=== PATIENT | female | born 1975 | race African-American/Black ===

== ENCOUNTER 2024-03-21 18:38 | Emergency (ER) | payer OTHER, SELFPAY ==
--- NOTE | ~2024-03-21 | XR_ITS ---
XR chest 2V Ordering provider: Aurelio Tidwell MD History: 49 years Female with . chest pain, LEFT SIDE FOR 3 DAYS . Comparison: None. FINDINGS: MEDIASTINUM: The cardiac silhouette is not enlarged. LUNGS: No effusions or pneumothorax. Opacification in the left upper lobe is noted suggestive of pneu monia. OTHER: No free air under the diaphragm. IMPRESSION: Left upper lobe pneumonia. Follow-up to resolution is advised. Reviewed, dictated and finalized at location A.
[2024-03-21 18:44] VITALS: BP 156/97; PULSE 84; RESP 20; TEMP 36.4; O2SAT 100
--- NOTE | 2024-03-21 18:48 | ECG_ITS ---
Test Date: 2024-03-21 18:53:45 Measurements Intervals Cadet Rate: 80 P: 76 IL: 158 QRS: -1 QRSD: 106 T: 56 QT: 355 QTc: 410 Interpretive Statements SINUS RHYTHM POSSIBLE RIGHT VENTRICULAR CONDUCTION DELAY [RSR (QR) IN V1/V2] WITHIN NORMAL LIMITS No previous ECG available for comparison Electronically Signed On 03-23-2024 13:20:30 CDT by Que Don M.D.
[2024-03-21 19:23] LABS: Alanine Aminotransferase 36 U/L (6-35); Albumin Level 3.5 g/dL (3.5-5.1); Alkaline Phosphatase 114 U/L (38-126); Anion Gap 11 mmol/L (4-12); Aspartate Amino Transferase 37 U/L (14-36); Bilirubin,Total 0.6 mg/dL (0.2-1.3); Blood Urea Nitrogen 10 mg/dL (7-17); Calcium 8.5 mg/dL (8.4-10.2); Carbon Dioxide 27 mmol/L (22-30); Chloride 101 mmol/L (98-107); Estimated CRCL calculation 102 ml/min; Estimated Glomerular Filt Rate > 60; Glucose 119 mg/dL (65-110); Lipase 89 U/L (23-300); Potassium 3.5 mmol/L (3.4-5.0); Sodium 139 mmol/L (137-145)
[2024-03-21 19:35] LABS: Troponin I < 0.012 ng/mL (0.000-0.034)
--- NOTE | 2024-03-21 22:58 | ED.GENADULT ---
HPI - General Adult General Chief complaint: Chest Pain Stated complaint: wants xray for pneumonia Time Seen by Provider: 03/21/24 22:17 History of Present Illness HPI narrative: Patient is a 49-year-old female who presents emergency department with chief complaint of I think I have pneumonia. The patient reports that since she has been feeling weak has had body aches some shortness of breath and a cough. Patient reports this feels similar to when she had pneumonia in the past. Related Data Allergies Allergy/AdvReac Type Severity Reaction Status Date / Time No Known Allergies Allergy Verified 03/21/24 18:39 Review of Systems Review of Systems: A 10 system review of systems was completed on the patient and is negative except for what is stated in the HPI. Nursing and ancillary documentation was reviewed. Exam Narrative: GENERAL: Well-appearing, well-nourished, and in no acute distress. HEAD: Normocephalic, atraumatic. EYES: PERRLA and EOMI. ENT: Nares clear, no rhinorrhea or epistaxis. Mucous membranes moist. NECK: Supple. CHEST: Clear to auscultation. No respiratory distress. HEART: Regular rate and rhythm. No murmur heard. Normal peripheral pulses. ABDOMEN: Soft, nontender, nondistended, normal active bowel sounds. EXTREMITIES: Normal range of motion. No edema. SKIN: Warm, dry, no rash. NEURO: No focal deficits. Alert and oriented x3. PSYCH: Normal mood and affect. Course Vital Signs Vital signs: Vital Signs Temperature 36.4 C 03/21/24 18:44 Pulse Rate 84 03/21/24 18:44 Respiratory Rate 20 03/21/24 18:44 Blood Pressure 156/97 H 03/21/24 18:44 Pulse Oximetry 100 03/21/24 18:44 Oxygen Delivery Room Air 03/21/24 18:44 Temperature 36.7 C 03/21/24 23:50 Pulse Rate 98 03/21/24 23:50 Respiratory Rate 14 03/21/24 23:50 Blood Pressure 163/97 H 03/21/24 23:50 Pulse Oximetry 100 03/21/24 23:50 Oxygen Delivery Room Air 03/21/24 23:09 Medical Decision Making [facility] Narrative Medical decision making narrative: Differential diagnosis includes pneumonia, viral illness, upper respiratory infection Laboratory studies were obtained on the patient showed normal CBC normal CMP the liver enzymes were slightly elevated with an AST of 37 and ALT of 36 bilirubin normal troponin was negative lipase is normal Chest x-ray showed left upper lobe pneumonia Vital Signs Vital Signs: Vital Signs Temperature 36.4 C 03/21/24 18:44 Pulse Rate 84 03/21/24 18:44 Respiratory Rate 20 03/21/24 18:44 Blood Pressure 156/97 H 03/21/24 18:44 Pulse Oximetry 100 03/21/24 18:44 Oxygen Delivery Room Air 03/21/24 18:44 Temperature 36.7 C 03/21/24 23:50 Pulse Rate 98 03/21/24 23:50 Respiratory Rate 14 03/21/24 23:50 Blood Pressure 163/97 H 03/21/24 23:50 Pulse Oximetry 100 03/21/24 23:50 Oxygen Delivery Room Air 03/21/24 23:09 Lab Data 03/21/24 23:46 03/21/24 19:05 Labs: Lab Results 03/21/24 03/21/24 Range/Units 19:05 23:46 WBC 10.0 (4.5-10.0) K/mm3 RBC 3.40 L (4.2-5.4) M/mm3 Hgb 9.7 L (12.0-15.0) g/dL Hct 29.8 L (37.0-47.0) % MCV 87.6 (80-100) fl MCH 28.5 (26-34) pg MCHC 32.6 (32-36) g/dl RDW 14.6 H (11.5-14.5) % Plt Count 363 (150-375) k/mm3 MPV 9.9 (7.4-10.4) fl Immature Gran % (Auto) 2.0 H (0-0.5) % Neut % (Auto) 54.6 (45.5-73.1) % Lymph % (Auto) 30.0 (18.3-44.2) % Summit % (Auto) 9.7 H (2.6-8.5) % Eos % (Auto) 3.0 (0-4.4) % Baso % (Auto) 0.7 (0.2-1.2) % Lymph # (Auto) 2.99 (0.9-3.2) K/mm3 Summit # (Auto) 1.0 H (0.1-0.6) K/mm3 Eos # (Auto) 0.3 (0-0.3) K/mm3 Baso # (Auto) 0.1 (0.0-0.1) K/mm3 Abs Immat Gran (auto) 0.20 H (0.00-0.031) K/mm3 Absolute Neuts (auto) 5.4 (1.3-6.7) K/mm3 Absolute Nucleated RBC 0.000 (0.0-0.012) K/mm3 Nucleated RBC % 0.0 (0.0-0.2) % PT Pending INR Pending APTT
[2024-03-21] MEDS: AZITHROMYCIN 250 MG TABLET 500 MG PO (23:16)
[2024-03-21] MEDS: CEFDINIR 300 MG CAPSULE PO (23:16)
[2024-03-21 23:50] VITALS: BP 163/97; PULSE 98; RESP 14; TEMP 36.7; O2SAT 100
[2024-03-22 00:09] LABS: Basophils Absolute Auto 0.1 K/mm3 (0.0-0.1); Basophils Percent Auto 0.7 % (0.2-1.2); Eosinophils Absolute Auto 0.3 K/mm3 (0-0.3); Hematocrit 29.8 % (37.0-47.0); Hemoglobin 9.7 g/dL (12.0-15.0); Lymphocytes Absolute Auto 2.99 K/mm3 (0.9-3.2); Mean Corpuscular HGB Conc 32.6 g/dl (32-36); Mean Corpuscular Hemoglobin 28.5 pg (26-34); Mean Corpuscular Volume 87.6 fl (80-100); Mean Platelet Volume 9.9 fl (7.4-10.4); Monocytes Percent Auto 9.7 % (2.6-8.5); Neutrophils Absolute Auto 5.4 K/mm3 (1.3-6.7); Neutrophils Percent Auto 54.6 % (45.5-73.1); Platelet Count Result 363 k/mm3 (150-375); Red Cell Distribution Width 14.6 % (11.5-14.5)
[2024-03-22 00:16] LABS: Troponin I < 0.012 ng/mL (0.000-0.034)
[2024-03-22 00:25] LABS: Prothrombin Time 13.5 Seconds (11.1-14.7)
[2024-03-22 00:26] LABS: Partial Thromboplastin Time 40.5 Seconds (22.3-36.8)
== END 2024-03-22 00:33 | disposition home or self-care (01) ==
PROVIDERS: Emergency Medicine; Emergency Provider Emergency Medicine
DX: J18.9 Pneumonia, unspecified organism (principal)
CPT/HCPCS: 36415; 71046; 80053; 83690; 84484; 85025; 85610; 85730; 93005; 99284; A9270

== ENCOUNTER 2025-07-25 16:56 | Emergency (ER) | payer OTHER, SELFPAY ==
[2025-07-25 17:20] VITALS: BP 165/98; PULSE 81; RESP 18; TEMP 36.5; O2SAT 100
[2025-07-25 20:41] VITALS: O2SAT 100
[2025-07-25 21:24] LABS: Strep Group A RT-PCR NOT DETECTED (Negative)
[2025-07-25 21:59] LABS: Influenza A QL RT-PCR Negative (Negative); Influenza B QL RT-PCR Negative (Negative); RSV RNA, RT-PCR Negative (Negative); SARS-CoV-2 RNA PCR Negative (Negative)
--- OUTSIDE RECORDS SUMMARY | 2025-07-25 22:07 | XMS_ITS | Clinical Summary ---
Author Organization [facility] [place] [address] Address [address] [place] [id number] Care Team Providers Care Process Coordinator Name Role Phone Lilibeth Richardson NP Primary Care Provider [phone] Allergies No known active allergies Medications ibuprofen (ADVIL,MOTRIN) 600 mg tablet Take 1 tablet (600 mg total) by mouth every 6 (six) hours as needed for pain (or headache) 30 tablet 2 02/07/[address] (VOLTAREN) 75 mg EC tablet Take 1 tablet (75 mg total) by mouth 2 (two) times a day as needed (pain) 60 tablet 05/28/2024 Active Active Problems Problem Noted Date Diagnosed Date Acute pain of right knee 02/07/2024 Assessment & Plan (02/07/2024 11:30 AM CDT): Will add diclofenac 75 mg b.i.d. for acute knee pain. She already has a appointment with sports medicine. She has already had an x-ray from [facility]. Showed small effusion. Follow-up with sports Medicine and they recommendations. Annual physical exam 02/07/2024 Assessment & Plan (02/07/2024 11:31 AM CDT): -Recommended: Healthy diet. Avoiding junk food/fast food. -30 minutes of exercise most days of the week. Increase to 45 minutes for weight loss. Health Maintenance reviewed - labs ordered today. -Influenza vaccine every year Recommend: - Topic Date Due DTaP/Tdap/Td Vaccine (1 - Tdap) Never done -F/u in 1 year for Annual PE or sooner if needed Patient declined to have labs drawn today. States she will come back another day and get drawn Chronic migraine without aur a without status migrainosus, not intractable 02/07/2024 Assessment & Plan (02/07/2024 11:18 AM CDT): Gets headache about twice/month. Usually uses prescription strength ibuprofen for headache. Asking for refill. She is aware not to use while she is on diclofenac. Immunizations Immunization Administration Dates Next Due Influenza, Unspecified 08/15/2023(Deferr ed: Patient Refused),08/15/2022(Deferred: Patient Refused) Pfizer SARS-CoV-2 Monovalent Vaccination (12+ Yrs) PURPLE 05/29/2021,05/01/2021 Family History Medical History Relation Name Comments Hypertension Father Solid Tumor Father Liver cancer Mother Relation Name Status Comments Father Mother Social History Tobacco Use Types Packs/Day Years Used Date Smoking Tobacco: Never Assessed PHQ-2 Answer Date Recorded PHQ-2 Total Score (If total score is 3 or more points, staff should administer the PHQ-9) 0 02/07/2024 Comments Unknown Sex and Gender Information Value Date Recorded Sex Assigned at Not on file Legal Sex Female 2:01 PM CDT Gender Identity Not on file Sexual Orientation Not on file Last Filed Vital Signs Vital Sign Reading Time Taken Comments Blood Pressure 128/82 02/07/2024 10:27 AM CDT Pulse 74 02/07/2024 10:27 AM CDT Temperature 36.4 C (97.6 F) 02/07/2024 10:27 AM CDT Respiratory Rate 18 02/07/2024 10:27 AM CDT Oxygen Saturation 99% 02/07/2024 10:27 AM CDT Inhaled Oxygen Concentration - - Weight 78.9 kg (174 lb) 02/07/2024 10:27 AM CDT Height 167.6 cm (5' 6) 02/07/2024 10:27 AM CDT Body Mass Index 28.08 02/07/2024 10:27 AM CDT Plan of Treatment Health Maintenance Due Date Last Done Comments Breast Cancer Screening-Mammogram 1975 Cervical Cancer Screening 1975 Colon Cancer Screening-Colonoscopy 1975 Hepatitis C Screening 1975 DTaP/Tdap/Td Vaccine (1 - Tdap) 1986 Hepatitis B Screening 1993 Depression Screening 02/06/2025 02/07/2024 Regular Well Visit/Exam 18-64 02/06/2025 02/07/2024 Zoster Vaccine (1 of 2) 2025 Covid-19 Vaccine (3 - 2024-2 6 season) 2025 05/29/2021, 05/01/2021 Influenza Vaccine (#1) 2025 Pneumococcal vaccine <65 Aged Out No longer eligible based on patient's age to complete [place] [id number] Care Teams Process Coordinator Relationship Specialty Start Date End Date Lilibeth Richardson NP [address] [place] [address] PCP - General Family Medicine 02/07/24
--- OUTSIDE RECORDS SUMMARY | 2025-07-25 22:07 | XMS_ITS | Clinical Summary ---
Author Organization [facility] Address [address] [place] [address] Care Team Providers Care Vacuum Worker Name Role Phone Unavailable Primary Care Provider Unavailabl e Source Comments [facility],non-owned Affiliates and Associated Physician Practices is amultiple site organization consisting of ambulatory clinics and hospital sitesin [place], [place], [place] and [place]. This disclosure is being madepursuant to the Care Everywhere program and may not contain all information available regarding this patient. Last updated 18.[facility] Allergies No known active allergies Social History Tobacco Use Types Packs/Day Years Used Date Smoking Tobacco: Every Day Cigarettes Cigars Smokeless Tobacco: Never Alcohol Use Standard Drinks/Week Comments Not Currently 0 (1 standard drink = 0.6 oz pur e alcohol) Comments No Sex and Gender Information Value Date Recorded Sex Assigned at Not on file Legal Sex Female 5:06 PM CDT Gender Identity Not on file Sexual Orientation Not on file Last Filed Vital Signs Vital Sign Reading Time Taken Comments Blood Pressure 167/96 04/26/2020 5:26 PM CDT Pulse 63 04/26/2020 5:26 PM CDT Temperature 36.8 C (98.3 F) 04/26/2020 5:26 PM CDT Respiratory Rate 16 04/26/2020 5:26 PM CDT Oxygen Saturation 95% 04/26/2020 5:26 PM CDT Inhaled Oxygen Concentration - - Weight 77.1 kg (170 lb) 04/26/2020 5:26 PM CDT Height 165.1 cm (5' 5) 04/26/2020 5:26 PM CDT Body Mass Index 28.29 04/26/2020 5:26 PM CDT Plan of Treatment Health Maintenance Due Date Last Done Comments MAGNUS (AGES 45-75) - COL ON CA SCREENING 1975 COLON MONITORING 1975 COLONOSCOPY - COLON CA SCREENING 1975 CT COLONOGRAPHY - COLON CA SCREENING 1975 Colorectal Cancer Screening 1975 FIT - COLON CA SCREENING 1975 FLEX SIG - COLON CA SCREENING 1975 LIPID TESTING 1975 MAMMOGRAM 1975 HIV SCREENING 1990 HEPATITIS C SCREENING 03/07/1993 DTAP/TDAP/TD VACCINES (1 - Tdap) 1994 HEPATITIS B VACCINE (1 of 3 - 19+ 3-dose series) 1994 DEPRESSION SCREENING 08/15/2024 PNEUMOCOCCAL VACCINE 50+ (1 of 1 - PCV) 2025 ZOSTER VACCINE (1 of 2) 2025 COVID-19 VACCINE (1 - 2024-2 6 season) 2025 INFLUENZA VACCINE (#1) 2025 HIB VACCINE Aged Out No longer eligi ble based on patient's age to complete this topic HPV VACCINE Aged Out No longer eligi ble based on patient's age to complete this topic MENINGOCOCCAL (Group B) VACC INE SHARED DECISION-MAKING Aged Out No longer eligibl e based on patient's age to complete this topic MENINGOCOCCAL GROUPS A/C/Y/W VACCINE Aged Out No longer eligible b ased on patient's age to complete this topic Insurance [facility]
[2025-07-25] MEDS: ACETAMINOPHEN 500 MG TABLET 1000 MG PO (22:59)
--- NOTE | 2025-07-25 23:11 | ED_ITS ---
HPI - General Adult General Chief complaint: Upper Respiratory Infection Stated complaint: sore throat-exposure to strep Time Seen by Provider: 07/25/25 22:03 History of Present Illness HPI narrative: 50-year-old female presenting with URI for the last few days. Accompanying symptoms include neck pain, headache, congestion, dry cough, and subjective fevers. denies nausea/vomiting /diarrhea vaginal concerns, urinary concerns, chest pain shortness of breath, or any history of recent trauma. She reports a family member was recently diagnosed with strep throat. She has not taken any medicines to help her symptoms. Related Data Allergies Allergy/AdvReac Type Severity Reaction Status Date / Time No Known Allergies Allergy Verified 03/21/24 18:39 Review of Systems Review of Systems: All systems reviewed & are unremarkable except as noted in HPI and below Exam Narrative: GENERAL: Uncomfortable. HEAD: Normocephalic, atraumatic. EYES: PERRLA and EOMI. ENT: Nares clear, no rhinorrhea or epistaxis. Mucous membranes moist. Oropharynx without tonsillar hypertrophy exudate or other lesions. Cerumen obstructs visualization of TM. Denies otalgia. NECK: Supple. No adenopathy or masses. No carotid bruits or JVD CHEST: Clear to auscultation. No respiratory distress. No wheezes rales or rhonchi HEART: Regular rate and rhythm. No murmur heard. Normal peripheral pulses. ABDOMEN: Soft, nontender, nondistended, normal active bowel sounds. EXTREMITIES: Normal range of motion. No edema. SKIN: Warm, dry, no rash. NEURO: No focal deficits. Alert and oriented x3. PSYCH: Normal mood and affect Course Vital Signs Vital signs: Vital Signs Temperature 97.7 F 07/25/25 17:20 Pulse Rate 81 07/25/25 17:20 Respiratory Rate 18 07/25/25 17:20 Blood Pressure 165/98 H 07/25/25 17:20 Pulse Oximetry 100 07/25/25 17:20 Temperature 97.7 F 07/25/25 17:20 Pulse Rate 81 07/25/25 17:20 Respiratory Rate 18 07/25/25 17:20 Blood Pressure 165/98 H 07/25/25 17:20 Pulse Oximetry 100 07/25/25 20:41 Oxygen Delivery Room Air 07/25/25 20:41 MDM MDM Narrative Medical decision making narrative: 50-year-old female presenting with URI for the last few days. Accompanying sy mptoms include neck pain, headache, congestion, dry cough, and subjective fevers. denies nausea/vomiting /diarrhea vaginal concerns, urinary concerns, chest pain/shortness of breath, or any history of recent trauma. She reports a family member was recently diagnosed with strep throat. She has not taken any medicines to help her symptoms. COVID, Flu, RSV, strep testing all negative. I recommended a chest x-ray and baseline labs and the patient declined. I had a very thorough conversation with the patient about the likelihood of having a self-limiting viral illness and reviewed self-care measures. Risks of an incomplete evaluation and treatment were discussed with the patient, including potential for or permanent disability. Patient seems to understand these risks, but still desires to refuse further care. Patient recommended to follow up with PCP in the next possible interval. Referral provided. Specifically, patient was told they can return to the ED at any time to resume care. Differential Diagnosis Differential Diagnosis: Differential diagnostic considerations for upper respiratory infection include upper respiratory infection, croup, otitis media, sinusitis, viral infection, bronchitis, influenza, pharyngitis, strep, uvulitis. Medical Records I have reviewed the following patient records and this information was taken into consideration when formulating the assessment and plan.: previous labs and previous ER visits Lab Data [facility] Lab Attestation statement: I personally reviewed the patient's lab results. Labs: Lab Results 07/25/25 Range/Units 20:49 Influenza A (RT-PCR) Negative (Negative) Influenza B (RT-PCR) Negative (Negative) RSV (RT-PCR) Negative (Negative) SARS-CoV-2 RNA (RT-PCR) Negative (Negative) Group A Strep (PCR) Not detected (Negative) Discharge Plan Discharge Clinical Impression: Viral infection, Upper respiratory infection Patient Disposition: Home Condition: Stable Instructions: Viral Syndrome (ED), Cold Symptoms (ED) Additional Instructions: Return to the emergency department for worsening symptoms or any other concerns. Remain well-hydrated and get plenty of rest. Take anti-inflammatories (Aleve, Ibuprofen, Naproxen, etc) or Tylenol as needed for aches and pains. Flonase for nasal congestion. Zyrtec for runny nose. Lozenges or Chloraseptic spray for sore throat. Follow up with primary care doctor. Patient Language: Palestinian Prescriptions: No Action azithromycin [Zithromax Z-Brandon] 250 mg tablet See Rx Instructions PO .COMPLEX Qty: 6 0RF Rx Instructions: For 250 mg dose pack: take 500 mg today (day 1), then 250 mg for 4 days (days 2-5) cefdinir 300 mg capsule 300 mg PO Q12H 10 Days Qty: 20 0RF benzonatate 200 mg capsule 200 mg PO TID PRN (Reason: cough) Qty: 21 0RF albuterol sulfate 90 mcg/actuation HFA aerosol inhaler 2 puff inhalation QID PRN (Reason: shortness of breath or wheezing) Qty: 8.5 0RF Follow-up/Referrals: Kerri Lobo DO [Physician, Family Practice] PHYSICIAN,ABALONE FISHERMAN [Primary Care Provider, Internal Medicine]
[2025-07-25 23:20] VITALS: BP 132/78; PULSE 82; RESP 20; TEMP 36.7; O2SAT 100
== END 2025-07-25 23:22 | disposition home or self-care (01) ==
PROVIDERS: Emergency Medicine
DX: J06.9 Acute upper respiratory infection, unspecified (principal); B97.89 Other viral agents as the cause of diseases classified elsewhere; Z20.822 Contact with and (suspected) exposure to COVID-19
CPT/HCPCS: 87637; 87651; 99283; A9270